=== PATIENT | male | born 1980 | race Caucasian/White ===

== ENCOUNTER → 2024-08-05 | Outpatient (CLI) | payer BC ==
--- NOTE | 2024-08-05 22:20 | CT ---
EXAMINATION TYPE: CT wrist LT wo con DATE OF EXAM: 08/05/2024 5:56 PM COMPARISON: None. CLINICAL INDICATION: Male, 44 years old with history of S52.532A COLLES' FRACTURE OF LEFT RADIUS, lef t wrist fx TECHNIQUE: Contrast used: mL of , (none if empty) Oral contrast used: (none if empty) Axial images 2 mm thick sections. Reconstructed images in the coronal and sagittal planes. Images obt ained through the fiberglass cast. FINDINGS: There is a transverse comminuted fracture of the distal metaphyseal radius. Alignment appears near-an atomic. Proximal and distal carpal rows appear intact. Scaphoid appears intact. Joint spaces appear preserved . Tiny avulsion at the ulnar styloid is likely present. IMPRESSION: 1. TRANSVERSE COMMINUTED FRACTURE DISTAL METAPHYSEAL RADIUS. 2. TINY AVULSION FROM THE ULNAR STYLOID [facility], Workstation: [facility], 08/05/2024 10:17 PM
== END | disposition home or self-care (01) ==
LOC: RADCTMAIN 16:57
PROVIDERS: ATTEND Orthopaedic Surgery
DX: S52.532A Colles' fracture of left radius, initial encounter for closed fracture (principal); X58.XXXA Exposure to other specified factors, initial encounter